=== PATIENT | female | born 1990 | race Caucasian/White ===

== ENCOUNTER 2016-09-19 21:37 | Emergency (ER) | payer OTHER ==
[~2016-09-19] VITALS: Ht 157.5 cm; Wt 63.5 kg
[2016-09-19 21:40] VITALS: BP 129/75
--- NOTE | 2016-09-19 23:04 | PHYS DOC ---
General Chief Complaint: LOWER BACK PAIN OR INJURY Stated Complaint: LOWER BACK PAIN Time Seen by MD: 23:03 Source: patient Problems: History of Present Illness Initial Comments Patient here for low back pain. Patient states she was unloading boxes in preparation for a garage yesterday when she pulled her back. She has the pain is increased today and she is here now for care. She has her pain is located over the low back bilaterally, and does radiate shoot down into the legs causing some numbness and tingling. She says she's had back pain like this before with some her symptoms when she tried to lift a battery from a car last year. She's had no direct history of blows to the back or falls. There is no fever chills URI symptoms or cough. There's no chest pain or shortness of breath. No nausea or vomiting. She has no abdominal pain. There is no change in bowel or bladder habits and no condoms. Her last period is unknown. She is on the Mirena device and states that there is no chance she could be . She does have the shooting pains down the legs, but denies any other acute focal extremity or neurologic complaints. She was still able to be up and about and go to work today, has been able to be up and about at home as well. Patient's taken some Tylenol for this as well as some Robaxin at home without help. She notes that is worse when she sits and when she lays back. She is here now specifically because when she tried to lay down, she had increasing back pain. She notes no other increasing or decreasing factors is done nothing else at home for this. Patient's past medical history is remarkable for some depression as well as psychosis. She's on the to do and an antidepressant. She is a nonsmoker and nonuser of ethanol. Allergies: Coded Allergies: No Known Drug Allergies (Unverified , 08/01/14) Past Medical History Medical History: no pertinent history Surgical History: noncontributory Psychosocial History: depression, other Social History Smoker: non-smoker Alcohol: none Review of Systems All Other Systems: Reviewed and Negative Physical Exam General Appearance: WD/WN, no apparent distress Neck: full range of motion, supple, normal inspection Respiratory: lungs clear, normal breath sounds, no respiratory distress Cardiovascular: regular rate, rhythm, no edema Gastrointestinal: non tender, soft, no organomegaly Back: no CVA tenderness, vertebral tenderness, other Extremities: non-tender, normal inspection Neurologic/Psychiatric: no motor/sensory deficits, alert, normal mood/affect, oriented x 3 Skin: normal color Lymphatic: no adenopathy Comments Generally this is a well-developed well-nourished white female in no acute distress. Vitals are as noted. She is sitting up eating [employer]. Pertinent findings on physical exam shows a chest clear. Cardiac vascular exam shows regular rate and rhythm without murmur. The abdomen is soft and nontender without masses or organomegaly. Back shows left some very mild low lumbar midline tenderness as well as bilateral lumbar paraspinal tenderness. There is no signs of trauma noted. Palpation does increase reproduce her pain. Externally show no rashes, cyanosis, or edema. DTRs are 3+ over 4+ equal bilaterally. Strength 5 over 5 = system. There are no gross sensory deficits. She stands without difficulty and Romberg is negative. Straight leg raising is negative bilaterally as well. Neurologic exam finds her to be awake alert oriented and cooperative. Remainder of physical exam is clinically unremarkable. Orders, Labs, Meds Old charts note prior ER visits for panic attack with med refill, gastroenteritis and dehydration, and low back pain. I discussed with the patient most likely diagnosis of low back strain. She really does have specific history, and she has no associated symptoms that would suggest an additional diagnosis. I don't think x-rays or labs are indicated at this time and the patient is agreeable to defer. She does have Robaxin at home as a muscle relaxant that she didn't need to use this. She is allergic to Toradol, but she is amenable to prescription for Ultram. She states she has no history of seizures. We discussed continued home care including rest , gentle stretching exercises the back, ice to start with heat to follow. She voiced understanding of the need to follow up with her own physician on posterior return to the ER sooner as needed if worsening anyway. She looks well , no acute discomfort distress, neurologically intact, and okay for discharge home at this time. ANNA HOPKINS MD Sep 19, 2016 23:04
== END 2016-09-20 00:01 | disposition home or self-care (01) ==
LOC: ER 21:37
DX: M54.5 Low back pain (principal); F32.9 Major depressive disorder, single episode, unspecified; R20.0 Anesthesia of skin; Z88.8 Allergy status to other drugs, medicaments and biological substances
CPT/HCPCS: 99281